=== PATIENT | male | born 1955 | race Caucasian/White ===

== ENCOUNTER 2020-03-18 04:44 | Inpatient (IN) ==
--- NOTE | 2020-03-18 04:50 | Emergency Department Note ---
Impression & Plan Acute hyponatremia, Paranoia (psychosis), Acute alteration in mental status ED Provider Note NAME: LISANDRA LANDRY AGE: 64 SEX: M ARRIVES VIA: Ambulance INFORMANT: Patient state police ED PROVIDER(S): Renuka Johnson DO CHIEF COMPLAINT: Inability to care for self; delusional thoughts PLAN: Disposition: Admission to the hospital for hyponatremia under [facility] service MEDICAL DECISION MAKING: This is a 64-year-old male patient who presents to the emergency department with erratic behavior and altered mental status. The patient became increasingly delusional, paranoid and unable to care for himself approximately 1 week ago according to his daughter. She is scared for his safety and has petitioned a 302. During his medical evaluation and clearance, it was found that he was hyponatremic. The patient required chemical sedation to keep the staff safe and to keep him safe as he was threatening staff, tearing off monitoring devices, and jumping up to a standing position on the bed. I tried on multiple occasions to redirect the patient and get him to focus on me to answer questions but this was unsuccessful. The patient's vital signs remained stable except for intermittent tachycardia. CT scan of the brain was unremarkable. We administered IV normal saline solution as the patient was hyponatremic. I discussed the case with Dr. Barnes who will evaluate the patient for further medical care and consult psychiatry. Triage Nursing notes reviewed and agree them. Additional history obtained from [place] [employer] and the patient's daughter Vital Signs: reviewed and remarkable for hypertension and tachycardia Differential diagnosis: Hypoglycemia, thought disorder, metabolic encephalopathy, electrolyte abnormal ity, hepatic encephalopathy, intracranial mass ER treatment provided: Chemical restraint IV normal saline replacement Diagnostics interpreted by me: ECG: Sinus tachycardia at 117. No ST segment elevation, no T wave inversion. No signs of cardiac ischemia or ectopy Imaging studies: As interpreted by stat rad: CT scan of the brain: Moderate chronic small vessel ischemic change. No ICH, mass-effect or edema. No evidence of acute cortical stroke. Mucosal thickening of bilateral maxillary sinuses. Laboratory studies: See below HPI: 64/M arrives for evaluation of delusional thoughts. The patient has a history of schizophrenia and has not been taking his medications. The patient's daughter petitioned a 302. The [employer] police picked the patient up on a warrant and brought him here for evaluation. The patient was combative upon arrival and covered in feces. He appeared paranoid and delusional at times. He had difficulty participating in meaningful conversation. He was difficult to redirect. ROS: See above HPI for pertinent positives & negatives. A total of 10 systems reviewed and were otherwise negative. PAST MEDICAL HISTORY: Schizophrenia and bipolar disorder PAST SURGICAL HISTORY:Unknown as the patient is unable to answer this FAMILY HISTORY:Unknown as the patient is unable to answer this SOCIAL HISTORY: The patient denies drug and alcohol use and states that he lives in a trailer HOME MEDICATIONS:Unknown as the patient denies that he takes any ALLERGIES:Unknown-the patient denies that he has any allergies VITALS:As below PHYSICAL EXAMINATION: This is a disheveled appearing 64-year-old male patient who is covered in dirt and feces. HEENT: Head - normocephalic and atraumatic Pupils are equal, round, and reactive to light. Extraocular eye muscles are intact, and sclera are anicteric. Nose - moist nasal mucosa without discharge. Mouth - moist buccal mucosa. Oropharynx is nonerythematous and there is no tonsillar exudate or edema noted. Neck: Supple; no JVD, nuchal rigidity, cervical lymphadenopathy, or auscultated bruits. Heart: Tachycardic rate and rhythm. There is a normal S1 and S2 with no murmurs, clicks, or gallops appreciated. Lungs: Clear to auscultation bilaterally with no wheezes, rales, or rhonchi. Abdomen: Soft, completely nontender, nondistended, with good bowel sounds. There are no palpable pulsatile masses or hepatosplenomegaly. There is no guarding, rigidity, or rebound noted. Extremities: No evidence of cyanosis, clubbing, or edema. There are easily palpable peripheral pulses. Skin: Extremely dirty with no obvious rashes Psych: The patient is extremely delusional and paranoid. He becomes quite hostile and belligerent at times. ED COURSE: Times/Reassessments: 0505: The patient is currently in the shower as he was covered in feces. He is screaming expletives from the shower. He is throwing stool covered towels from the shower. 0512: Nursing staff have alerted me that the patient is unable to cooperate with getting out of the shower into a bed for evaluation. He is throwing stool covered wash rags at them and security is assisting him into a bed and he will require sedation 0515: I went to the bedside and found the patient standing on the bed in the room with security and nursing staff in the room encouraging him to lay down. He allowed nursing staff to apply the blood pressure cuff but then immediately ripped it off and threatened to rip the blood pressure cord out of the blood pressure machine. He then began to scream expletives at the staff. I attempted on multiple occasions to engage in conversation with the patient to discuss his past medical history or medications but he ignored me. Once nursing staff arrived in the room with injectable medications, security was able to hold the patient by his extremities and the patient cooperated to have intramuscular injections placed in both buttocks. The patient continues to tell us that he insists that Oleksandr Abraham be in handcuffs. He denies any past medical history or that he is taking any medications. 0545: The patient was much more relaxed and able to go for CT scan of the brain. 0625: The patient is sleeping at this time. The public health program manager spoke with the patient's daughter who explained that her father has not seen a physician in approximately 20 years. She noted that she became concerned about her father 1 week ago when he seemed to be having more delusional thoughts. He was paranoid living in his trailer and therefore he moved out of the trailer to live in his car. She denies any history of medical problems except for the bipolar disorder with schizophrenic characteristics. Procedures: Chemical restraint for staff and patient safety Critical Care: I have personally spent greater than 75 minutes of critical care time in the direct management of this patient most specifically for chemical restraint. This includes bedside care, interpretation of diagnostic studies, and testing, discussion with, patient, and family members, and other required patient management activities. This 75 minutes is in excess of all separately billable procedures. Renuka Johnson, DO Past Med/Surg History Social History Feels Safe at Home: Yes Smoking Status: Unknown if ever smoked Results & Data (ED) Vital Signs Vital Signs - 24 hr 03/18/20 05:00 03/18/20 06:13 03/18/20 06:50 Temperature 36.8 C Temperature Source Oral Pulse Rate 121 H Pulse Rate [Right Finger] 98 H 114 H Pulse Rhythm Regular Pulse Rhythm [Right Finger] Regular Pulse Strength Normal Pulse Strength [Right Finger] Normal Respiratory Rate 22 20 Respiratory Effort / Characteristics Non-Labored Spontaneous Non-Labored Spontaneous Respiratory Depth Normal Normal Respiratory Pattern Regular Regular Blood Pressure 135/101 H Blood Pressure [Right Arm] 115/80 Blood Pressure Mean 112 Blood Pressure Mean [Right Arm] 91 Blood Pressure Position Lying Blood Pressure Position [Right Arm] Lying Pulse Oximetry 95 91 90 Oxygen Delivery Method Room Air Room Air Room Air Oxygen Flow Rate Sepsis Recent Fever Within 48 Hours No Sepsis New/Unexplained Change in Mental Status No Sepsis Action Taken by Nursing No Action Required 03/18/20 07:08 Temperature Temperature Source Pulse Rate Pulse Rate [Right Finger] 109 H Pulse Rhythm Pulse Rhythm [Right Finger] Pulse Strength Pulse Strength [Right Finger] Respiratory Rate 26 H Respiratory Effort / Characteristics Respiratory Depth Respiratory Pattern Blood Pressure Blood Pressure [Right Arm] 98/79 L Blood Pressure Mean Blood Pressure Mean [Right Arm] 85 Blood Pressure Position Blood Pressure Position [Right Arm] Pulse Oximetry 93 Oxygen Delivery Method Nasal Cannula Oxygen Flow Rate 2 Sepsis Recent Fever Within 48 Hours Sepsis New/Unexplained Change in Mental Status Sepsis Action Taken by Nursing Laboratory Data Result diagrams: 03/18/20 05:26 03/18/20 05:26 Lab Results 03/18/20 03/18/20 03/18/20 Range/Units 05:26 05:26 05:26 WBC 14.67 H (4.8-10.8) K/uL RBC 4.58 L (4.7-6.1) M/uL Hgb 13.7 L (14.0-18.0) g/dL Hct 40.5 L (42-52) % MCV 88.4 (80-100) fL MCH 29.9 (25-34) pg MCHC 33.8 (32-36) g/dL RDW Std Deviation 44.0 (36.4-46.3) fL RDW Coeff of Kurt 13.6 (11.5-14.5) % Plt Count 418 H (130-400) K/uL MPV 9.2 (7.4-10.4) fL Immature Gran % (Auto) 0.4 % Neut % (Auto) 79.7 % Lymph % (Auto) 8.7 % [place] % (Auto) 11.0 % Eos % (Auto) 0.1 % Baso % (Auto) 0.1 % Immature Gran # (Auto) 0.06 H (0.00-0.02) K/uL Neut # (Auto) 11.68 H (1.4-6.5) K/uL Lymph # (Auto) 1.28 (1.2-3.4) K/uL [place] # (Auto) 1.62 H (0.11-0.59) K/uL Eos # (Auto) 0.01 (0-0.5) K/uL Baso # (Auto) 0.02 (0-0.2) K/uL Sodium 129 L (136-145) mmol/L Potassium 4.5 (3.5-5.1) mmol/L Chloride 94 L (98-107) mmol/L Carbon Dioxide 27 (21-32) mmol/L Anion Gap 8.0 (3-11) BUN 15 (7-18) mg/dl Creatinine 0.79 (0.6-1.4) mg/dl Est Cr Clr Drug Dosing 89.0 ml/min Est GFR ( Amer) 109.2 Est GFR (Non-Af Amer) 94.2 BUN/Creatinine Ratio 18.6 (10-20) Glucose 135 H (70-99) mg/dl Calcium 9.5 (8.5-10.1) mg/dl Total Bilirubin 0.5 (0.2-1) mg/dl AST 23 (15-37) U/L ALT 23 (12-78) U/L Alkaline Phosphatase 87 (45-117) U/L Ammonia (11-32) umol/L Total Protein 7.7 (6.4-8.2) gm/dl Albumin 3.2 L (3.4-5.0) gm/dl Globulin 4.5 H (2.5-4.0) gm/dl Albumin/Globulin Ratio 0.7 L (0.9-2) TSH 0.650 (0.300-4.500) uIu/ml Salicylates < 1.7 L (2.8-20) mg/dl Acetaminophen < 2 L (10-30) ug/ml Ethyl Alcohol mg/dL (0-3) mg/dl 03/18/20 03/18/20 Range/Units 05:26 05:26 WBC (4.8-10.8) K/uL RBC (4.7-6.1) M/uL Hgb (14.0-18.0) g/dL Hct (42-52) % MCV (80-100) fL MCH (25-34) pg MCHC (32-36) g/dL RDW Std Deviation (36.4-46.3) fL RDW Coeff of Kurt (11.5-14.5) % Plt Count (130-400) K/uL MPV (7.4-10.4) fL Immature Gran % (Auto) % Neut % (Auto) % Lymph % (Auto) % [place] % (Auto) % Eos % (Auto) % Baso % (Auto) % Immature Gran # (Auto) (0.00-0.02) K/uL Neut # (Auto) (1.4-6.5) K/uL Lymph # (Auto) (1.2-3.4) K/uL [place] # (Auto) (0.11-0.59) K/uL Eos # (Auto) (0-0.5) K/uL Baso # (Auto) (0-0.2) K/uL Sodium (136-145) mmol/L Potassium (3.5-5.1) mmol/L Chloride (98-107) mmol/L Carbon Dioxide (21-32) mmol/L Anion Gap (3-11) BUN (7-18) mg/dl Creatinine (0.6-1.4) mg/dl Est Cr Clr Drug Dosing ml/min Est GFR ( Amer) Est GFR (Non-Af Amer) BUN/Creatinine Ratio (10-20) Glucose (70-99) mg/dl Calcium (8.5-10.1) mg/dl Total Bilirubin (0.2-1) mg/dl AST (15-37) U/L ALT (12-78) U/L Alkaline Phosphatase (45-117) U/L Ammonia < 10.0 L (11-32) umol/L Total Protein (6.4-8.2) gm/dl Albumin (3.4-5.0) gm/dl Globulin (2.5-4.0) gm/dl Albumin/Globulin Ratio (0.9-2) TSH (0.300-4.500) uIu/ml Salicylates (2.8-20) mg/dl Acetaminophen (10-30) ug/ml Ethyl Alcohol mg/dL < 3.0 (0-3) mg/dl Administered Medications Discontinued Medications Haloperidol Lactate (Haldol) Confirm Administered Dose 5 mg .ROUTE .STK-MED ONE Stop: 03/18/20 05:15 Last Admin: 03/18/20 05:20 Dose: 5 mg Documented by: [id number] Haloperidol Lactate (Haldol) 5 mg IM NOW STA Stop: 03/18/20 05:30 Last Admin: 03/18/20 05:48 Dose: Not Given Documented by: [id number] Sodium Chloride (Nss 1000ml) 1,000 mls @ 999 mls/hr IV .Q1H1M ONE Stop: 03/18/20 07:21 Last Admin: 03/18/20 06:48 Dose: 999 mls/hr Documented by: [id number] Lorazepam (Ativan) Confirm Administered Dose 2 mg .ROUTE .STK-MED ONE Stop: 03/18/20 05:15 Last Admin: 03/18/20 05:20 Dose: 2 mg Documented by: [id number] Lorazepam (Ativan) 2 mg IM NOW STA Stop: 03/18/20 05:30 Last Admin: 03/18/20 05:47 Dose: Not Given Documented by: [id number] Discharge Plan Visit Data Chief Complaint: Altered Mental Status Stated Complaint: ALTERED MENTAL STATUS ED Provider: Renuka Johnson Discharge Problem: Acute hyponatremia, Paranoia (psychosis), Acute alteration in mental status Forms Stand Alone Forms: [facility]
[2020-03-18] MEDS ORDERED: LORazepam 2 MG/ML VIAL (IM USE) ONE (05:14)
[2020-03-18] MEDS ORDERED: HALOPERIDOL LACTATE 5 MG/ML 1 ML VIAL ONE (05:14)
[2020-03-18] MEDS ORDERED: LORazepam 2 MG/ML VIAL (IM USE) IM STA (05:29)
[2020-03-18] MEDS ORDERED: HALOPERIDOL LACTATE 5 MG/ML 1 ML VIAL IM STA (05:29)
[2020-03-18 06:02] LABS: Basophils # (auto) 0.02 K/uL (0-0.2); Basophils % (auto) 0.1 %; Eosinophils # (auto) 0.01 K/uL (0-0.5); Eosinophils % (auto) 0.1 %; Hematocrit (blood only) 40.5 % (42-52); Hemoglobin 13.7 g/dL (14.0-18.0); Immature Granulocytes # (auto) 0.06 K/uL (0.00-0.02); Immature Granulocytes % (auto) 0.4 %; Lymphocytes # (auto) 1.28 K/uL (1.2-3.4); Lymphocytes % (auto) 8.7 %; Mean Corpuscular Hemoglobin 29.9 pg (25-34); Mean Corpuscular Hgb Conc 33.8 g/dL (32-36); Mean Corpuscular Volume 88.4 fL (80-100); Mean Platelet Volume 9.2 fL (7.4-10.4); Monocytes # (auto) 1.62 K/uL (0.11-0.59); Neutrophils # (auto) 11.68 K/uL (1.4-6.5); Neutrophils % (auto) 79.7 %; Platelet Count 418 K/uL (130-400); RDW Coefficient of Variation 13.6 % (11.5-14.5); Red Blood Count 4.58 M/uL (4.7-6.1); White Blood Count 14.67 K/uL (4.8-10.8)
[2020-03-18 06:08] LABS: Albumin Level 3.2 gm/dl (3.4-5.0); BUN Creatinine Ratio 18.6 (10-20); Calcium 9.5 mg/dl (8.5-10.1); Est GFR (African American) 109.2; Est GFR (Non-African American) 94.2; Potassium 4.5 mmol/L (3.5-5.1)
[2020-03-18 06:19] LABS: Albumin Globulin Ratio 0.7 (0.9-2); Bilirubin,Total 0.5 mg/dl (0.2-1); Globulin 4.5 gm/dl (2.5-4.0); Thyroid Stimulating Hormone 0.65 uIu/ml (0.300-4.500); Total Protein 7.7 gm/dl (6.4-8.2)
[2020-03-18] MEDS ORDERED: SODIUM CHLORIDE 0.9% 1000ML 1,000 ML IV ONE (06:21)
[2020-03-18 06:22] LABS: Acetaminophen < 2 ug/ml (10-30); Salicylate < 1.7 mg/dl (2.8-20)
--- NOTE | 2020-03-18 07:44 | CT Scan Report ---
CT head/brain wo con CLINICAL HISTORY: 64 years-old Male presenting with altered mental status, schizophrenia, bipolar, of f medication. TECHNIQUE: Multidetector CT imaging of the head was performed without the use of intravenous contrast . IV contrast: None. One or more dose lowering techniques were used consistent with the principles of ALARA (as low as reasonably achievable), including automatic exposure control, mA or kV adjustment t o individual patient size, and/or use of iterative reconstruction. COMPARISON: None. CT DOSE (mGy.cm): The estimated cumulative dose is 921.40 mGy.cm. FINDINGS: Contact Center Assistant topogram: Unremarkable. Motion artifact degrades image quality limiting diagnostic sensitivity to a mild degree. Ventricles and sulci normal in size. No hemorrhage. Brain parenchyma normal in appearance with preser marybeth martinez-white differentiation. No acute territorial infarct. No mass effect or midline shift. No ext ra-axial fluid collection. Mucosal thickening in the maxillary sinuses. Calvarium intact. IMPRESSION: Motion artifact degrades image quality limiting diagnostic sensitivity to a mild degree. 1. No acute intracranial abnormality. ACT 112: Negative or not required by law. Electronically signed by: Yoni Hull M.D. 03/18/2020 7:42 AM
--- NOTE | 2020-03-18 08:56 | History & Physical Report ---
Date of Service March 18, 2020 Assessment & Plan (1) Acute hyponatremia: With paranoia, delusions, possible metabolic encephalopathy, and dehydration with Na+ 129 and ketones in urine Secondary to dehydration, pneumonia, sepsis most likely -continue IVFs with NS x 2L -follow BMP in AM -treating PNA, dehydration (2) Paranoia (psychosis): With a h/o bipolar with schizotypal disorder TSH here is normal -haldol po and IM ordered for severe agitation -ativan as needed -check B1, folate, B12 levels -give banana bag and watch for EtOH withdrawal as not sure how much he truly drinks Psych consult appreciated (3) Pneumonia: Left sided multifocal PNA seen on CXR With fevers, hypotension, no significant hypoxia -check BCs, sputum cx -start ceftriaxone and azithro -check BioFire--> + for Entero/Rhinovirus -COVID-19 pending-use airborne and droplet precautions -follow CXR to resolution -supplemental O2 as needed (4) Sepsis: With leukocytosis, fever, tachycardia, and Pneumonia -continue IV abx, IVFs -follow BCxs, urine cx, sputum cx (5) Dehydration: with hyponatremia, ketones in urine Likely not drinking much while paranoid -adv diet as tolerated -giving IVFs (6) Schizoaffective disorder, bipolar type: with a h/o 2 remote hospitalizations at inpatient Psych -consult Psych-discussed case with Psych [facility] (7) Acute metabolic encephalopathy: secondary to psychosis vs PNA and sepsis vs both -hydrating, treating with abx (8) Marijuana abuse: noted (9) Tobacco abuse: nicotine patch if needed (10) DVT prophylaxis: SCDs Dispo-admit to med floor with tele Polysomnography Technician consulted History of Present Illness Chief Complaint: Confusion,brought in by police on 302 Primary Care Provider: NO PCP This pt is a 64 yo male with a h/o bipolar disorder with psychosis who was brought in by [employer] after he left home about one week ago and was driving hours away from his house. 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 Pt became increasingly paranoid that his son was going to call the police and have him committed to a hospital for psych issues. He then left and was maintaining contact with his daughter via phone until he ran out of cell phone minutes. He befriended another couple in the [place] area who lent him a cell phone to call his daughter. The daughter found out his approximate whereabouts. After pt reported to his daughter that he thought someone was trying to kill him and push his car over a herbert with him inside, she became worried about his mental health and called the police. Daughter also reports to me that pt has not seen a doctor in over 20 years and that was for an inpatient psychiatric hospitalization. She also thinks that he may be abusing "horse tranquilizers." [facility], covered in feces, and his car was filled with feces and trash. He was agitated and combative in the ER and was given ativan and haldol, required multiple security guards to control him for safety. He was very lethargic when I saw him for admission, but did wake up enough a few times to tell me his name was "Ludwin" and answered "yes" to if he smoked cigarettes as well as "too much" when asked how many cigarettes per day he smoked. Otherwise, he would not provide any history. He was noted to be coughing, tachycardic, hypotensive, dehydrated, with ketones in urine, marijuana on tox screen, and with hyponatremia of Na+ 129. CT head was negative. A few hours after admission to the floor, he spiked a fever to 38.1C and was found to have a left sided multifocal PNA. He will be admitted for hyponatremia, dehydration, paranoia and confusion, and pneumonia with sepsis. Home Medications Home Medications Medication Instructions Recorded Confirmed Type aspirin 81 mg PO DAILY 03/18/20 03/18/20 History Past Med/Surg History Medical History (Updated 03/19/20 @ 00:14 by Lisa Barnes MD) Arthritis Schizoaffective disorder, bipolar type Tobacco abuse Family History Other Family history non-contributory Social History Preferred Language: Tristanian Larr[place] Required: No marital status: / Current Living Situation: Alone Current Living Situation Comment: Pt did not answer in depth current occupational status: disabled current occupation: Was a [employer], now disabled Feels Safe at Home: Declines to Answer Smoking Status: Current every day smoker Tobacco Type: cigarettes ; Hx Alcohol Use: Yes Alcohol type: beer Hx Substance Use: Yes substance use type: tranquilizers Substance Use Type Other:: reported possible horse tranquilizers from family Last Used Substance: Unknown Review of Systems Review of Systems: Unobtainable due to cognitive status and Unobtainable due to reduced consciousness daughter reports pt c/o right hand being weak for the last few weeks and he thought he had a stroke and began taking a baby aspirin daily +cough Physical Exam Constitutional: average body habitus, + disheveled and + lethargic; no acute distress Eyes: + anicteric sclerae; no eyelid abnormality exophthalmos OU ENMT: external ear and nose normal, oropharynx normal Neck: trachea midline, no thyromegaly Respiratory: normal respiratory effort and + cough; no labored breathing Auscultation: + rhonchi (bilateral); no wheezes Cardiovascular: Rate/Rhythm: regular rhythm and + tachycardic Heart Sounds: no murmur Chest (Breasts): Chest: normal inspection of chest Gastrointestinal (Abdomen): normal bowel sounds, soft, nontender, no hepatosplenomegaly Musculoskeletal: Extremities: + extremities abnormal to inspection (sarcopenia), no cyanosis and no clubbing Skin: no rashes, warm and dry Neurologic: moves all extremities Psychiatric: Orientation: oriented to person, cooperative and + guarded; + not oriented to place and + not oriented to time Eye Contact: + poor eye contact Motor Behavior: n tremor Insight: + severely impaired insight Lymphatic: no lymphedema Results & Data Results & Data ([facility]) Vital Signs (Past 12 Hours) Vital Signs Temp Pulse Pulse Resp BP BP Pulse Ox 03/18/20 07:08 109 H 26 H 98/79 L 93 03/18/20 06:50 114 H 20 115/80 90 03/18/20 06:13 98 H 91 03/18/20 05:00 36.8 C 121 H 22 135/101 H 95 Laboratory Results 03/18/20 03/18/20 03/18/20 Range/Units Unknown Unknown Unknown WBC (4.8-10.8) K/uL RBC (4.7-6.1) M/uL Hgb (14.0-18.0) g/dL Hct (42-52) % MCV (80-100) fL MCH (25-34) pg MCHC (32-36) g/dL RDW Std Deviation (36.4-46.3) fL RDW Coeff of Kurt (11.5-14.5) % Plt Count (130-400) K/uL MPV (7.4-10.4) fL Immature Gran % (Auto) % Neut % (Auto) % Lymph % (Auto) % [place] % (Auto) % Eos % (Auto) % Baso % (Auto) % Immature Gran # (Auto) (0.00-0.02) K/uL Neut # (Auto) (1.4-6.5) K/uL Lymph # (Auto) (1.2-3.4) K/uL [place] # (Auto) (0.11-0.59) K/uL Eos # (Auto) (0-0.5) K/uL Baso # (Auto) (0-0.2) K/uL Sodium (136-145) mmol/L Potassium (3.5-5.1) mmol/L Chloride (98-107) mmol/L Carbon Dioxide (21-32) mmol/L Anion Gap (3-11) BUN (7-18) mg/dl Creatinine (0.6-1.4) mg/dl Est Cr Clr Drug Dosing ml/min Est GFR ( Amer) Est GFR (Non-Af Amer) BUN/Creatinine Ratio (10-20) Glucose (70-99) mg/dl Calcium (8.5-10.1) mg/dl Total Bilirubin (0.2-1) mg/dl AST (15-37) U/L ALT (12-78) U/L Alkaline Phosphatase (45-117) U/L Ammonia (11-32) umol/L Total Protein (6.4-8.2) gm/dl Albumin (3.4-5.0) gm/dl Globulin (2.5-4.0) gm/dl Albumin/Globulin Ratio (0.9-2) TSH (0.300-4.500) uIu/ml Urine Color Yellow Urine Appearance Clear (Clear) Urine pH 6.0 (4.5-7.5) Ur Specific [place] 1.011 (1.000-1.030) Urine Protein Negative (Negative) Urine Glucose (UA) Negative (Negative) Urine Ketones 1+ H (Negative) Urine Blood Negative (Negative) Urine Nitrite Negative (Negative) Urine Bilirubin Negative (Negative) Urine Urobilinogen Negative (Negative) Ur Leukocyte Esterase Negative (Negative) Salicylates (2.8-20) mg/dl Urine Opiates Screen Neg (Neg) Ur Methadone, Qual Neg (Neg) Acetaminophen (10-30) ug/ml Urine Barbiturates Neg (Neg) Ur Phencyclidine (PCP) Neg (Neg) U Amphetamin/Meth Scrn Neg (Neg) MDMA (Ecstasy) Screen Neg (Neg) U Benzodiazepines Scrn Neg (Neg) Ur Cocaine Metabolite Neg (Neg) U Marijuana (THC) Screen Pos H (Neg) U Marijuana THC Carboxy Pending Drug Screen Comment Pending Ethyl Alcohol mg/dL (0-3) mg/dl Adenovirus (PCR) (NotDetected) B. pertussis DNA (PCR) (NotDetected) B.parapertussis DNA PCR (NotDetected) C. pneumoniae DNA (PCR) (NotDetected) Coronavirus OC43 (PCR) (NotDetected) Coronavirus HKU1 (PCR) (NotDetected) Coronavirus 229E (PCR) (NotDetected) Coronavirus NL63 (PCR) (NotDetected) Human Metapneumovir PCR (NotDetected) Influenza Type A (PCR) (Neg) Influenza Type B (PCR) (Neg) M. pneumoniae (PCR) (NotDetected) Parainfluenza 1 (PCR) (NotDetected) Parainfluenza 2 (PCR) (NotDetected) Parainfluenza 3 (PCR) (NotDetected) Parainfluenza 4 (PCR) (NotDetected) RSV (PCR) (NotDetected) Entero/Rhino (PCR) (NotDetected) SARS-CoV-2 RNA (RT-PCR) 03/18/20 03/18/20 03/18/20 Range/Units 17:00 17:00 16:05 WBC (4.8-10.8) K/uL RBC (4.7-6.1) M/uL Hgb (14.0-18.0) g/dL Hct (42-52) % MCV (80-100) fL MCH (25-34) pg MCHC (32-36) g/dL RDW Std Deviation (36.4-46.3) fL RDW Coeff of Kurt (11.5-14.5) % Plt Count (130-400) K/uL MPV (7.4-10.4) fL Immature Gran % (Auto) % Neut % (Auto) % Lymph % (Auto) % [place] % (Auto) % Eos % (Auto) % Baso % (Auto) % Immature Gran # (Auto) (0.00-0.02) K/uL Neut # (Auto) (1.4-6.5) K/uL Lymph # (Auto) (1.2-3.4) K/uL [place] # (Auto) (0.11-0.59) K/uL Eos # (Auto) (0-0.5) K/uL Baso # (Auto) (0-0.2) K/uL Sodium (136-145) mmol/L Potassium (3.5-5.1) mmol/L Chloride (98-107) mmol/L Carbon Dioxide (21-32) mmol/L Anion Gap (3-11) BUN (7-18) mg/dl Creatinine (0.6-1.4) mg/dl Est Cr Clr Drug Dosing ml/min Est GFR ( Amer) Est GFR (Non-Af Amer) BUN/Creatinine Ratio (10-20) Glucose (70-99) mg/dl Calcium (8.5-10.1) mg/dl Total Bilirubin (0.2-1) mg/dl AST (15-37) U/L ALT (12-78) U/L Alkaline Phosphatase (45-117) U/L Ammonia (11-32) umol/L Total Protein (6.4-8.2) gm/dl Albumin (3.4-5.0) gm/dl Globulin (2.5-4.0) gm/dl Albumin/Globulin Ratio (0.9-2) TSH (0.300-4.500) uIu/ml Urine Color Urine Appearance (Clear) Urine pH (4.5-7.5) Ur Specific [place] (1.000-1.030) Urine Protein (Negative) Urine Glucose (UA) (Negative) Urine Ketones (Negative) Urine Blood (Negative) Urine Nitrite (Negative) Urine Bilirubin (Negative) Urine Urobilinogen (Negative) Ur Leukocyte Esterase (Negative) Salicylates (2.8-20) mg/dl Urine Opiates Screen (Neg) Ur Methadone, Qual (Neg) Acetaminophen (10-30) ug/ml Urine Barbiturates (Neg) Ur Phencyclidine (PCP) (Neg) U Amphetamin/Meth Scrn (Neg) MDMA (Ecstasy) Screen (Neg) U Benzodiazepines Scrn (Neg) Ur Cocaine Metabolite (Neg) U Marijuana (THC) Screen (Neg) U Marijuana THC Carboxy Drug Screen Comment Ethyl Alcohol mg/dL (0-3) mg/dl Adenovirus (PCR) Not Detected (NotDetected) B. pertussis DNA (PCR) Not Detected (NotDetected) B.parapertussis DNA PCR Not Detected (NotDetected) C. pneumoniae DNA (PCR) Not Detected (NotDetected) Coronavirus OC43 (PCR) Not Detected (NotDetected) Coronavirus HKU1 (PCR) Not Detected (NotDetected) Coronavirus 229E (PCR) Not Detected (NotDetected) Coronavirus NL63 (PCR) Not Detected (NotDetected) Human Metapneumovir PCR Not Detected (NotDetected) Influenza Type A (PCR) Not Detected Neg for Influ A (Neg) Influenza Type B (PCR) Not Detected Neg for Influ B (Neg) M. pneumoniae (PCR) Not Detected (NotDetected) Parainfluenza 1 (PCR) Not Detected (NotDetected) Parainfluenza 2 (PCR) Not Detected (NotDetected) Parainfluenza 3 (PCR) Not Detected (NotDetected) Parainfluenza 4 (PCR) Not Detected (NotDetected) RSV (PCR) Not Detected (NotDetected) Entero/Rhino (PCR) DETECTED A* (NotDetected) SARS-CoV-2 RNA (RT-PCR) Pending 03/18/20 03/18/20 03/18/20 Range/Units 05:26 05:26 05:26 WBC (4.8-10.8) K/uL RBC (4.7-6.1) M/uL Hgb (14.0-18.0) g/dL Hct (42-52) % MCV (80-100) fL MCH (25-34) pg MCHC (32-36) g/dL RDW Std Deviation (36.4-46.3) fL RDW Coeff of Kurt (11.5-14.5) % Plt Count (130-400) K/uL MPV (7.4-10.4) fL Immature Gran % (Auto) % Neut % (Auto) % Lymph % (Auto) % [place] % (Auto) % Eos % (Auto) % Baso % (Auto) % Immature Gran # (Auto) (0.00-0.02) K/uL Neut # (Auto) (1.4-6.5) K/uL Lymph # (Auto) (1.2-3.4) K/uL [place] # (Auto) (0.11-0.59) K/uL Eos # (Auto) (0-0.5) K/uL Baso # (Auto) (0-0.2) K/uL Sodium (136-145) mmol/L Potassium (3.5-5.1) mmol/L Chloride (98-107) mmol/L Carbon Dioxide (21-32) mmol/L Anion Gap (3-11) BUN (7-18) mg/dl Creatinine (0.6-1.4) mg/dl Est Cr Clr Drug Dosing ml/min Est GFR ( Amer) Est GFR (Non-Af Amer) BUN/Creatinine Ratio (10-20) Glucose (70-99) mg/dl Calcium (8.5-10.1) mg/dl Total Bilirubin (0.2-1) mg/dl AST (15-37) U/L ALT (12-78) U/L Alkaline Phosphatase (45-117) U/L Ammonia < 10.0 L (11-32) umol/L Total Protein (6.4-8.2) gm/dl Albumin (3.4-5.0) gm/dl Globulin (2.5-4.0) gm/dl Albumin/Globulin Ratio (0.9-2) TSH (0.300-4.500) uIu/ml Urine Color Urine Appearance (Clear) Urine pH (4.5-7.5) Ur Specific [place] (1.000-1.030) Urine Protein (Negative) Urine Glucose (UA) (Negative) Urine Ketones (Negative) Urine Blood (Negative) Urine Nitrite (Negative) Urine Bilirubin (Negative) Urine Urobilinogen (Negative) Ur Leukocyte Esterase (Negative) Salicylates < 1.7 L (2.8-20) mg/dl Urine Opiates Screen (Neg) Ur Methadone, Qual (Neg) Acetaminophen < 2 L (10-30) ug/ml Urine Barbiturates (Neg) Ur Phencyclidine (PCP) (Neg) U Amphetamin/Meth Scrn (Neg) MDMA (Ecstasy) Screen (Neg) U Benzodiazepines Scrn (Neg) Ur Cocaine Metabolite (Neg) U Marijuana (THC) Screen (Neg) U Marijuana THC Carboxy Drug Screen Comment Ethyl Alcohol mg/dL < 3.0 (0-3) mg/dl Adenovirus (PCR) (NotDetected) B. pertussis DNA (PCR) (NotDetected) B.parapertussis DNA PCR (NotDetected) C. pneumoniae DNA (PCR) (NotDetected) Coronavirus OC43 (PCR) (NotDetected) Coronavirus HKU1 (PCR) (NotDetected) Coronavirus 229E (PCR) (NotDetected) Coronavirus NL63 (PCR) (NotDetected) Human Metapneumovir PCR (NotDetected) Influenza Type A (PCR) (Neg) Influenza Type B (PCR) (Neg) M. pneumoniae (PCR) (NotDetected) Parainfluenza 1 (PCR) (NotDetected) Parainfluenza 2 (PCR) (NotDetected) Parainfluenza 3 (PCR) (NotDetected) Parainfluenza 4 (PCR) (NotDetected) RSV (PCR) (NotDetected) Entero/Rhino (PCR) (NotDetected) SARS-CoV-2 RNA (RT-PCR) 03/18/20 03/18/20 Range/Units 05:26 05:26 WBC 14.67 H (4.8-10.8) K/uL RBC 4.58 L (4.7-6.1) M/uL Hgb 13.7 L (14.0-18.0) g/dL Hct 40.5 L (42-52) % MCV 88.4 (80-100) fL MCH 29.9 (25-34) pg MCHC 33.8 (32-36) g/dL RDW Std Deviation 44.0 (36.4-46.3) fL RDW Coeff of Kurt 13.6 (11.5-14.5) % Plt Count 418 H (130-400) K/uL MPV 9.2 (7.4-10.4) fL Immature Gran % (Auto) 0.4 % Neut % (Auto) 79.7 % Lymph % (Auto) 8.7 % [place] % (Auto) 11.0 % Eos % (Auto) 0.1 % Baso % (Auto) 0.1 % Immature Gran # (Auto) 0.06 H (0.00-0.02) K/uL Neut # (Auto) 11.68 H (1.4-6.5) K/uL Lymph # (Auto) 1.28 (1.2-3.4) K/uL [place] # (Auto) 1.62 H (0.11-0.59) K/uL Eos # (Auto) 0.01 (0-0.5) K/uL Baso # (Auto) 0.02 (0-0.2) K/uL Sodium 129 L (136-145) mmol/L Potassium 4.5 (3.5-5.1) mmol/L Chloride 94 L (98-107) mmol/L Carbon Dioxide 27 (21-32) mmol/L Anion Gap 8.0 (3-11) BUN 15 (7-18) mg/dl Creatinine 0.79 (0.6-1.4) mg/dl Est Cr Clr Drug Dosing 89.0 ml/min Est GFR ( Amer) 109.2 Est GFR (Non-Af Amer) 94.2 BUN/Creatinine Ratio 18.6 (10-20) Glucose 135 H (70-99) mg/dl Calcium 9.5 (8.5-10.1) mg/dl Total Bilirubin 0.5 (0.2-1) mg/dl AST 23 (15-37) U/L ALT 23 (12-78) U/L Alkaline Phosphatase 87 (45-117) U/L Ammonia (11-32) umol/L Total Protein 7.7 (6.4-8.2) gm/dl Albumin 3.2 L (3.4-5.0) gm/dl Globulin 4.5 H (2.5-4.0) gm/dl Albumin/Globulin Ratio 0.7 L (0.9-2) TSH 0.650 (0.300-4.500) uIu/ml Urine Color Urine Appearance (Clear) Urine pH (4.5-7.5) Ur Specific [place] (1.000-1.030) Urine Protein (Negative) Urine Glucose (UA) (Negative) Urine Ketones (Negative) Urine Blood (Negative) Urine Nitrite (Negative) Urine Bilirubin (Negative) Urine Urobilinogen (Negative) Ur Leukocyte Esterase (Negative) Salicylates (2.8-20) mg/dl Urine Opiates Screen (Neg) Ur Methadone, Qual (Neg) Acetaminophen (10-30) ug/ml Urine Barbiturates (Neg) Ur Phencyclidine (PCP) (Neg) U Amphetamin/Meth Scrn (Neg) MDMA (Ecstasy) Screen (Neg) U Benzodiazepines Scrn (Neg) Ur Cocaine Metabolite (Neg) U Marijuana (THC) Screen (Neg) U Marijuana THC Carboxy Drug Screen Comment Ethyl Alcohol mg/dL (0-3) mg/dl Adenovirus (PCR) (NotDetected) B. pertussis DNA (PCR) (NotDetected) B.parapertussis DNA PCR (NotDetected) C. pneumoniae DNA (PCR) (NotDetected) Coronavirus OC43 (PCR) (NotDetected) Coronavirus HKU1 (PCR) (NotDetected) Coronavirus 229E (PCR) (NotDetected) Coronavirus NL63 (PCR) (NotDetected) Human Metapneumovir PCR (NotDetected) Influenza Type A (PCR) (Neg) Influenza Type B (PCR) (Neg) M. pneumoniae (PCR) (NotDetected) Parainfluenza 1 (PCR) (NotDetected) Parainfluenza 2 (PCR) (NotDetected) Parainfluenza 3 (PCR) (NotDetected) Parainfluenza 4 (PCR) (NotDetected) RSV (PCR) (NotDetected) Entero/Rhino (PCR) (NotDetected) SARS-CoV-2 RNA (RT-PCR) Diagnostic Findings CT head-neg for acute CXR personally reviewed and agree with the following report: SINGLE VIEW CHEST CLINICAL HISTORY: Cough and fever. FINDINGS: 2 AP, portable, upright chest radiographs are obtained. No prior studies are available for comparison at the time of dictation. The examination is degraded by portable technique and patient rotation. The heart is mildly enlarged noting atherosclerotic calcification of the thoracic aorta. Pulmonary vasculature is noncongested. There is patchy airspace consolidation at the left lung base and in the lingula. There is minimal atelectasis at the right lung base. No large pleural effusion or pneumothorax is seen. The skeletal structures appear osteopenic. The bony thorax is grossly intact. IMPRESSION: 1. There is airspace consolidation at the left lung base and lingula. Correlate clinically for evidence of pneumonia. Radiographic follow-up to resolution is recommended. 2. Cardiomegaly without radiographic evidence of congestive failure. ECG Rhythm: sinus tachycardia Additional Comments: no ischemic changes Code Status & VTE Plan Code Status FULL CODE VTE Prophylaxis Plan VTE Prophylaxis will be ordered: Yes PG Care Time/CCT Total # of Minutes Spent Total Time Spent with Patient: Total time spent is greater than 50% in coordination of care (as documented) at patient's floor/unit and/or counseling patient: Coding Level of Care Code 46689 Initial Inpt Care Lvl 3 Diagnoses Acute hyponatremia E87.1 Paranoia (psychosis) F22 Pneumonia J18.9 Sepsis A41.9 Dehydration E86.0 Schizoaffective disorder, bipolar type F25.0 Acute metabolic encephalopathy G93.41 Marijuana abuse F12.10 Tobacco abuse Z72.0 DVT prophylaxis Z29.9
[2020-03-18] MEDS: SODIUM CHLORIDE 0.9% 1000ML 1,000 ML IV SCH ×2 (09:09→16:46)
[2020-03-18] MEDS ORDERED: ONDANSETRON INJ 2 MG/ML 2 ML VIAL IV PRN (12:00)
[2020-03-18] MEDS ORDERED: POLYETHYLENE (MIRALAX) 17 GM PACK PO PRN (12:00)
[2020-03-18] MEDS ORDERED: HALOPERIDOL LACTATE 5 MG/ML 1 ML VIAL IM PRN (12:00)
[2020-03-18] MEDS ORDERED: ACETAMINOPHEN 325 MG TAB PO PRN (12:00)
[2020-03-18] MEDS ORDERED: LORazepam 1 MG/2 ML VIAL IV PRN (12:00)
[2020-03-18] MEDS ORDERED: MAGNESIUM HYDROXIDE SUSP 30 ML UDC PO PRN (12:00)
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
[2020-03-18 15:02] LABS: Appearance Urine Clear (Clear); Bilirubin Urine Negative (Negative); Blood Urine Negative (Negative); Color Urine Yellow; Glucose Urine UA Negative (Negative); Ketones Urine 1+ (Negative); Leukocyte Esterase Urine Negative (Negative); Nitrite Urine Negative (Negative); Protein Urine Negative (Negative); Specific Gravity Urine 1.011 (1.000-1.030); Urobilinogen Urine Negative (Negative)
--- NOTE | 2020-03-18 15:22 | Electrocardiogram Report ---
Test Reason : Blood Pressure : / mmHG Vent. Rate : 117 BPM Atrial Rate : 117 BPM P-R Int : 124 ms QRS Dur : 092 ms QT Int : 326 ms P-R-T Axes : 072 066 068 degrees QTc Int : 454 ms Sinus tachycardia Nonspecific ST abnormality Abnormal ECG No previous ECGs available Confirmed by Enrrique Esposito ([id number]) on 03/18/2020 3:22:32 PM Referred By: Confirmed By:Luca Esposito
[2020-03-18 15:32] LABS: Amphetamines+Metham, Urine Neg (Neg); Barbiturates, Urine Neg (Neg); Benzodiazepine, Urine Neg (Neg); Cocaine, Urine Neg (Neg); MDMA (Ecstacy), Urine Neg (Neg); Methadone, Urine Neg (Neg); Opiate, Urine Neg (Neg); Phencyclidine, Urine Neg (Neg)
--- NOTE | 2020-03-18 16:31 | XRay Report ---
SINGLE VIEW CHEST CLINICAL HISTORY: Cough and fever. FINDINGS: 2 AP, portable, upright chest radiographs are obtained. No prior studies are available for comparison at the time of dictation. The examination is degraded by portable technique and patient ro tation. The heart is mildly enlarged noting atherosclerotic calcification of the thoracic aorta. Pul monary vasculature is noncongested. There is patchy airspace consolidation at the left lung base and in the lingula. There is minimal atelectasis at the right lung base. No large pleural effusion or pne umothorax is seen. The skeletal structures appear osteopenic. The bony thorax is grossly intact. IMPRESSION: 1. There is airspace consolidation at the left lung base and lingula. Correlate clinically for eviden ce of pneumonia. Radiographic follow-up to resolution is recommended. 2. Cardiomegaly without radiographic evidence of congestive failure. ACT 112: Negative or not required by law. Electronically signed by: Brando Mckinney M.D. 03/18/2020 4:30 PM
[2020-03-18 16:49] LABS: Influenza A virus by PCR Neg for Influ A (Neg); Influenza B virus by PCR Neg for Influ B (Neg)
[2020-03-18] MEDS ORDERED: haloperidoL 5 MG TAB PO PRN (16:52)
[2020-03-18] MEDS ORDERED: AZITHROMYCIN 500 MG in DEXTROSE 5% 250 ML IV ONE (17:45)
[2020-03-18] MEDS: cefTRIAXone SODIUM 1,000 MG in DEXTROSE 5% 50 ML IV SCH (18:10)
[2020-03-18 18:21] LABS: Adenovirus PCR Not Detected (NotDetected); Coronavirus 229E PCR Not Detected (NotDetected); Coronavirus HKU1 PCR Not Detected (NotDetected); Coronavirus NL63 PCR Not Detected (NotDetected)
[2020-03-18 18:22] LABS: Bordetella parapertussis PCR Not Detected (NotDetected); Bordetella pertussis PCR Not Detected (NotDetected); Chlamydia pneumoniae PCR Not Detected (NotDetected); Coronavirus OC43PCR Not Detected (NotDetected); Human Metapneumovirus PCR Not Detected (NotDetected); Influenza A PCR Not Detected (NotDetected); Influenza B PCR Not Detected (NotDetected); Parainfluenza Virus 1 PCR Not Detected (NotDetected); Parainfluenza Virus 2 PCR Not Detected (NotDetected); Parainfluenza Virus 3 PCR Not Detected (NotDetected); Parainfluenza Virus 4 PCR Not Detected (NotDetected); Respiratory Syncytial VirusPCR Not Detected (NotDetected)
[2020-03-18 18:23] LABS: Mycoplasma pneumoniae PCR Not Detected (NotDetected)
[2020-03-18 18:25] LABS: Rhinovirus/Enterovirus PCR DETECTED (NotDetected)
[2020-03-18] MEDS ORDERED: COUGH DROP (SUGAR FREE) LOZ 24 LOZ/1 BOX BUCCAL PRN (22:17)
[2020-03-18] MEDS ORDERED: PATIENT'S ALLERGY INFO NEEDS ENTERED SCH (22:30)
[2020-03-18] MEDS ORDERED: MULTI-VITAMIN INFUSION 10 ML, THIAMINE HCL 100 MG, FOLIC ACID 1 MG in SODIUM CHLORIDE 0... IV ONE (23:59)
[2020-03-19 12:37] LABS: SARS CoV2 RNA(COVID-19) InHosp NEGATIVE (Negative)
[2020-03-19] MEDS ORDERED: risperiDONE ODT 0.5 MG SOLTAB PO PRN (12:39)
[2020-03-19] MEDS ORDERED: HALOPERIDOL LACTATE 5 MG/ML 1 ML VIAL IM PRN (12:42)
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
[2020-03-19 14:18] LABS: Basophils # (auto) 0.02 K/uL (0-0.2); Basophils % (auto) 0.1 %; Eosinophils # (auto) 0.05 K/uL (0-0.5); Eosinophils % (auto) 0.4 %; Immature Granulocytes # (auto) 0.06 K/uL (0.00-0.02); Immature Granulocytes % (auto) 0.4 %; Lymphocytes # (auto) 1.54 K/uL (1.2-3.4); Lymphocytes % (auto) 11.1 %; Mean Corpuscular Hemoglobin 30.2 pg (25-34); Mean Corpuscular Hgb Conc 33.3 g/dL (32-36); Mean Corpuscular Volume 90.5 fL (80-100); Monocytes # (auto) 0.84 K/uL (0.11-0.59); Monocytes % (auto) 6.1 %; Neutrophils # (auto) 11.32 K/uL (1.4-6.5); Neutrophils % (auto) 81.9 %; Platelet Count 418 K/uL (130-400); RDW Coefficient of Variation 13.8 % (11.5-14.5); Red Blood Count 3.98 M/uL (4.7-6.1); White Blood Count 13.83 K/uL (4.8-10.8)
[2020-03-19 14:34] LABS: Albumin Level 2.7 gm/dl (3.4-5.0); BUN Creatinine Ratio 18.9 (10-20); C Reactive Protein 16.5 mg/dl (0-0.29); Calcium 8.8 mg/dl (8.5-10.1); Creatinine Clr Calc Pharmacy 93.8 ml/min; Est GFR (African American) 111.6; Est GFR (Non-African American) 96.3
[2020-03-19 14:38] LABS: Albumin Globulin Ratio 0.7 (0.9-2); Bilirubin,Total 0.3 mg/dl (0.2-1); Globulin 4.1 gm/dl (2.5-4.0); Total Protein 6.8 gm/dl (6.4-8.2)
[2020-03-19 14:56] LABS: Folate (Folic Acid) 14.85 ng/ml (>5.38)
[2020-03-19 15:03] LABS: Procalcitonin 0.08 ng/ml (0-0.5)
[2020-03-19 15:14] LABS: Lyme Ab IgG w/WB Rflx Negative (Negative); Lyme Ab IgM w/WB Rflx Negative (Negative)
[2020-03-19] MEDS: ASPIRIN 81 MG ECTAB PO SCH (16:23)
[2020-03-19] MEDS: AZITHROMYCIN 250 MG TAB PO SCH (16:23)
[2020-03-19] MEDS ORDERED: AZITHROMYCIN 250 MG in DEXTROSE 5% 250 ML IV SCH (17:00)
[2020-03-19] MEDS: cefTRIAXone SODIUM 1,000 MG in DEXTROSE 5% 50 ML IV SCH (18:34)
[2020-03-19] MEDS ORDERED: risperiDONE ODT 0.5 MG SOLTAB PO SCH (20:00)
[2020-03-20] MEDS: ASPIRIN 81 MG ECTAB PO SCH (08:04)
[2020-03-20] MEDS: CEFDINIR 300 MG CAP PO SCH ×2 (09:16→21:08)
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
[2020-03-20] MEDS: AZITHROMYCIN 250 MG TAB PO SCH (17:03)
--- NOTE | 2020-03-20 17:32 | Hospitalist Progress Note ---
Date of Service March 20, 2020 Assessment & Plan (1) Acute hyponatremia: With paranoia, delusions, possible metabolic encephalopathy, and dehydration with Na+ 129 and ketones in urine on admission Secondary to dehydration, pneumonia, sepsis most likely Now hydrated with IVFs and Na+ up almost to normal at 135 Patient refused labs today -Have since discontinued IVFs -treating PNA as below (2) Paranoia (psychosis): Patient is here on a 302 warrant and remains with a one-to-one sitter- inability to take care of himself and for homicidal ideations With a h/o bipolar disorder, schizoaffective type see H&P HPI for background information TSH here is normal Was making homicidal statements, pressured speech, with psychomotor agitation, paranoid that his family members were trying to have him committed and that someone was trying to kill him on the side of the road Question of prior drug use. UDS + for marijuana, but also reports of "horse tranquilizer" use Does drink some EtOH but unknown amounts -gave Banana bag x 1 on admission and started folate, thiamine He was given IM Haldol and Ativan in the ER initially, and started on Risperdal on the evening of 03/19 Now significantly improved, less paranoia, more appropriate affect, much less psychomotor agitation There is a possibility he also had a drug-induced psychosis as there was reports from family members of horse tranquilizer (ketamine?) As well as methamphetamin e use -Continue Risperdal 0.5 mg p.o. at bedtime and 0.25 mg p.o. twice daily PRN during the day as per psychiatry -haldol IM ordered for severe agitation -check B1-pending, RPR pending -Patient refusing further laboratories as requested by psychiatry Psych consult appreciated-unfortunately, he cannot be transferred to a mental health unit until he is off precautions for his entero-/rhinovirus which will be when he is asymptomatic with his illness. (3) Pneumonia: Left sided multifocal PNA seen on CXR With fevers, hypotension, and some mild hypoxia all now resolved Significantly improved with starting antibiotics Continues to cough up sputum -Follow BCxs-no growth to date -sputum cx-pending -Received ceftriaxone x2 days-convert today to p.o. cefdinir 300 mg p.o. twice daily x5 more days-last dose on 03/24 -Continue azithro 250 mg p.o. daily-last dose 03/22 -checked BioFire--> + for Entero/Rhinovirus--> continue droplet precautions until course of illness is over-much improved already-likely 1-2 more days -COVID-19 negative-have since discontinued airborne precautions -follow CXR to resolution -supplemental O2 as needed -Patient refusing further labs therefore CBC not repeated (4) Sepsis: With leukocytosis, fever, tachycardia, and Pneumonia-resolved -follow BCxs, urine cx, sputum cx (5) Dehydration: with hyponatremia, ketones in urine Likely was not drinking much while paranoid -gave IVFs, now drinking and eating No further fluids or labs needed Much improved (6) Schizoaffective disorder, bipolar type: with a h/o 2 remote hospitalizations at inpatient Psych -consult Psych-appreciated on 302 warrant As above -Continue Risperdal (7) Acute metabolic encephalopathy: secondary to psychosis vs PNA and sepsis vs both-resolved -hydrated, treated with abx (8) Marijuana abuse: noted (9) Tobacco abuse: nicotine patch if needed (10) DVT prophylaxis: SCDs Dispo-continued stay for treatment of pneumonia, however is much improved and on oral antibiotics, not on IV fluids, and once symptoms are improved he can be taken off rhinovirus precautions and transfer to mental health unit Pump Rebuilder consulted Admission and Anticipated Discharge Date Admission Date: March 18, 2020 Subjective Patient reports feeling much better today. Still coughing up a lot of sputum, no rhinorrhea. Denies chest pain or abdominal pains, no nausea. He is eating well. Moving his bowels without loose stools. He reports getting a really good night's rest last night after taking Risperdal for the first time. He states that he spoke with his son on the phone today and they cleared the air regarding their differences. He is feeling much better from a mental health standpoint and does not think he needs to stay any longer for that. I discussed his case with the psychiatric nurse liaison. Patient is still refusing any further blood work today and psychiatry is requesting that he have blood work due to previous abnormalities. Review of Systems Review of Systems: All systems reviewed & are unremarkable except as noted in HPI & below Physical Exam Constitutional: average body habitus; no acute distress Eyes: + anicteric sclerae ENMT: external ear and nose normal, oropharynx normal Neck: trachea midline, no thyromegaly Respiratory: normal respiratory effort, lungs clear to auscultation no labored breathing Auscultation: + crackles (Left lower lung field); no rhonchi (Resolved) and no wheezes Cardiovascular: Rate/Rhythm: regular rate and regular rhythm Heart Sounds: no murmur Chest (Breasts): Chest: normal inspection of chest Gastrointestinal (Abdomen): normal bowel sounds, soft, nontender, no hepatosplenomegaly Musculoskeletal: Extremities: + extremities abnormal to inspection (sarcopenia), no cyanosis and no clubbing Shoulder: + joint line tenderness (+TTP over right anterior shoulder,long head biceps tendon, no effusion) Skin: + ecchymosis (Right upper inner arm) Neurologic: moves all extremities Psychiatric: A+Ox3, euthymic affect Orientation: oriented to person and cooperative Insight: + poor insight Lymphatic: no lymphedema Results & Data Results & Data ([facility]) Vital Signs (Past 12 Hours) Vital Signs Temp Pulse Resp BP Pulse Ox 03/20/20 14:19 36.7 C 87 18 128/87 95 Laboratory Results Lyme titer negative RPR pending Vitamin B1 pending Blood cultures no growth to date Sputum culture pending PG Care Time/CCT Total # of Minutes Spent Total Time Spent with Patient: Total time spent is greater than 50% in coordination of care (as documented) at patient's floor/unit and/or counseling patient: Coding Level of Care Code 90082 Subseq Hosp Care Lvl 2 Diagnoses Acute hyponatremia E87.1 Paranoia (psychosis) F22 Pneumonia J18.9 Sepsis A41.9 Dehydration E86.0 Schizoaffective disorder, bipolar type F25.0 Acute metabolic encephalopathy G93.41 Marijuana abuse F12.10 Tobacco abuse Z72.0 DVT prophylaxis Z29.9
[2020-03-20] MEDS: RISPERIDONE ODT 1MG PO SCH (21:11)
[2020-03-21 01:05] LABS: Marijuana Quant, GCMS Urine 573 ng/mL (<5)
[2020-03-21] MEDS: CEFDINIR 300 MG CAP PO SCH ×2 (09:12→20:25)
[2020-03-21] MEDS: ASPIRIN 81 MG ECTAB PO SCH (09:12)
[2020-03-21] MEDS: THIAMINE HCL 100 MG TAB PO SCH (10:34)
[2020-03-21] MEDS: ALUMINUM/MAGNESIUM SUSP 30 ML UDC PO PRN (12:20)
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
[2020-03-21] MEDS: AZITHROMYCIN 250 MG TAB PO SCH (17:08)
[2020-03-21] MEDS: RISPERIDONE ODT 1MG PO SCH (20:25)
[2020-03-22 01:14] LABS: Rapid Plasma Reagin Nonreactive (Nonreactive)
[2020-03-22] MEDS: CEFDINIR 300 MG CAP PO SCH (09:01)
[2020-03-22] MEDS: THIAMINE HCL 100 MG TAB PO SCH (09:01)
[2020-03-22] MEDS: ASPIRIN 81 MG ECTAB PO SCH (09:01)
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
[2020-03-22] MEDS: ALUMINUM/MAGNESIUM SUSP 30 ML UDC PO PRN (10:45)
--- NOTE | 2020-03-22 12:23 | Hospitalist Progress Note ---
Date of Service March 22, 2020 Assessment & Plan (1) Impaired decision making: Continues to not understand concerns or why he has ended up in hospital. Unable to understand concerns from his daughter. Continues to lack capacity to make his own medical decisions at this time. Plan to transfer to inpatient psychiatry facility as per discussion with Dr Baumann. (2) Acute hyponatremia: now resolved. Secondary to dehydration PNA, ?sepsis With paranoia, delusions, possible metabolic encephalopathy, and dehydration with Na+ 129 and ketones in urine on admission Secondary to dehydration, pneumonia, sepsis most likely Now hydrated with IVFs and Na+ up almost to normal at 135 Patient continues to refuse labs (3) Paranoia (psychosis): Patient is here on a 302 warrant and remains with a one-to-one sitter - inability to take care of himself and for prior homicidal ideations With a h/o bipolar disorder, schizoaffective type see H&P HPI for background information TSH here is normal Was making homicidal statements, pressured speech, with psychomotor agitation, paranoid that his family members were trying to have him committed and that someone was trying to kill him on the side of the road Question of prior drug use. UDS + for marijuana, but also reports of "horse tranquilizer" use Does drink some EtOH but unknown amounts Continue thiamine 100mg PO daily Now significantly improved, more appropriate affect, much less psychomotor agitation There is a possibility he also had a drug-induced psychosis as there was reports from family members of horse tranquilizer (ketamine?) As well as methamphetamine use -Continue Risperdal 1 mg p.o. at bedtime and 0.25 mg p.o. twice daily PRN during the day as per psychiatry -haldol IM ordered for severe agitation -check B1-pending, RPR negative (4) Pneumonia: Left base and lingula PNA on CXR With fevers, hypotension, and some mild hypoxia all now resolved Significantly improved with starting antibiotics - Follow BCxs-no growth to date - sputum cx-light normal yousif - Continue PO cefdinir 300 mg p.o. twice daily last dose on 03/24 - Continue azithro 250 mg p.o. daily-last dose 03/22 - checked BioFire -> + for Entero/Rhinovirus -> can d/c droplet precautions now no longer symptomatic - COVID-19 negative - Patient refusing further labs therefore CBC not repeated (5) Sepsis: Now resolved. Leukocytosis, fever, tachycardia with source PNA -follow BCxs, urine cx, sputum cx (6) Dehydration: Resolved (7) Schizoaffective disorder, bipolar type: with a h/o 2 remote hospitalizations at inpatient Psych on 302 warrant - Continue Risperdal (8) Acute metabolic encephalopathy: Now appears resolved. Secondary to hyponatremia vs. psychosis vs PNA and sepsis (9) Marijuana abuse: Patient admits to last smoking 2 weeks prior to admission. Does not feel he was ever paranoid or hallucinating therefore denies this had anything to do with his presentation to hospital. (10) Tobacco abuse: Nicotine patch if needed (11) DVT prophylaxis: SCDs Admission and Anticipated Discharge Date Admission Date: March 18, 2020 Isolation restrictions removed. Patient is medically stable for discharge to inpatient psychiatry at this time as discussed with Dr Baumann. Subjective Patient just wants to talk about his ingrown toe nails today and ankle swelling. He reports the ankle swelling was worse earlier this morning. He gets a water pill at [facility] although notes this is over the counter but he cannot tell me the name of it. Reports no longer coughing or sneezing. Afebrile. Review of Systems Review of Systems: All systems reviewed & are unremarkable except as noted in HPI & below Physical Exam Constitutional: average body habitus; + not well nourished and no acute distress Eyes: + anicteric sclerae ENMT: external ear and nose normal, oropharynx normal Neck: trachea midline, no thyromegaly Respiratory: normal respiratory effort; no respiratory distress Auscultation: lungs clear to auscultation bilaterally; no crackles, no rhonchi and no wheezes Cardiovascular: Extremities: + pedal edema (ankle 2+ b/l equal without erythema) Skin: no rashes, warm and dry + ecchymosis (Right upper inner arm) ingrown toe nails noted without surrounding infection Neurologic: moves all extremities and awake; no focal motor deficits and not confused Psychiatric: Orientation: alert, oriented x 3 and cooperative Eye Contact: + fair eye contact Thought Process: + looseness of associations Thought Content: reality based without delusions; not paranoid Suicidal Thoughts: denies suicidal thoughts Homicidal Thoughts: denies homicidal thoughts Insight: + impaired insight Judgement: + impaired judgement Results & Data Results & Data ([facility]) Vital Signs (Past 12 Hours) Vital Signs Temp Pulse Resp BP Pulse Ox 03/22/20 08:39 161/81 H 03/22/20 07:30 36.6 C 85 18 96 PG Care Time/CCT Total # of Minutes Spent Total Time Spent with Patient: Total time spent is greater than 50% in coordination of care (as documented) at patient's floor/unit and/or counseling patient: Coding Level of Care Code 14174 Subseq Hosp Care Lvl 2 Diagnoses Impaired decision making Z78.9 Acute hyponatremia E87.1 Paranoia (psychosis) F22 Pneumonia J18.9 Sepsis A41.9 Dehydration E86.0 Schizoaffective disorder, bipolar type F25.0 Acute metabolic encephalopathy G93.41 Marijuana abuse F12.10 Tobacco abuse Z72.0 DVT prophylaxis Z29.9
[2020-03-22] MEDS: AZITHROMYCIN 250 MG TAB PO SCH (16:21)
--- NOTE | 2020-03-23 14:25 | Discharge Summary ---
Date of Service March 22, 2020 Admission HPI Per Admitting Provider This pt is a 64 yo male with a h/o bipolar disorder with psychosis who was brought in by [employer] after he left home about one week ago and was driving hours away from his house. 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 Pt became increasingly paranoid that his son was going to call the police and have him committed to a hospital for psych issues. He then left and was maintaining contact with his daughter via phone until he ran out of cell phone minutes. He befriended another couple in the [place] area who lent him a cell phone to call his daughter. The daughter found out his approximate whereabouts. After pt reported to his daughter that he thought someone was trying to kill him and push his car over a [place]bert with him inside, she became worried about his mental health and called the police. Daughter also reports to me that pt has not seen a doctor in over 20 years and that was for an inpatient psychiatric hospitalization. She also thinks that he may be abusing "horse tranquilizers." Pt was found at his [facility], covered in feces, and his car was filled with feces and trash. He was agitated and combative in the ER and was given ativan and haldol, required multiple security guards to control him for safety. He was very lethargic when I saw him for admission, but did wake up enough a few times to tell me his name was "Ludwin" and answered "yes" to if he smoked cigarettes as well as "too much" when asked how many cigarettes per day he smoked. Otherwise, he would not provide any history. He was noted to be coughing, tachycardic, hypotensive, dehydrated, with ketones in urine, marijuana on tox screen, and with hyponatremia of Na+ 129. CT head was negative. A few hours after admission to the floor, he spiked a fever to 38.1C and was found to have a left sided multifocal PNA. He will be admitted for hyponatremia, dehydration, paranoia and confusion, and pneumonia with sepsis. Admission Exam Per Admitting Provider Constitutional: average body habitus, + disheveled and + lethargic; no acute distress Eyes: + anicteric sclerae; no eyelid abnormality exophthalmos OU ENMT: external ear and nose normal, oropharynx normal Neck: trachea midline, no thyromegaly Respiratory: normal respiratory effort and + cough; no labored breathing Auscultation: + rhonchi (bilateral); no wheezes Cardiovascular: Rate/Rhythm: regular rhythm and + tachycardic Heart Sounds: no murmur Chest (Breasts): Chest: normal inspection of chest Gastrointestinal (Abdomen): normal bowel sounds, soft, nontender, no hepatosplenomegaly Musculoskeletal: Extremities: + extremities abnormal to inspection (sarcopenia), no cyanosis and no clubbing Skin: no rashes, warm and dry Neurologic: moves all extremities Psychiatric: Orientation: oriented to person, cooperative and + guarded; + not oriented to place and + not oriented to time Eye Contact: + poor eye contact Motor Behavior: n tremor Insight: + severely impaired insight Lymphatic: no lymphedema Principal Diagnosis Schizoaffective disorder, Bipolar type Acute hyponatremia from dehydration Left lower lobe pneumonia Sepsis Psychosis Discharge Exam see physical exam from progress note from March 22 Discharge Data Allergies Allergy/AdvReac Type Severity Reaction Status Date / Time No Known Allergies Allergy Unverified 03/19/20 01:01 Consultations 03/18/20 08:05 ED Decision to Admit Stat 03/18/20 12:00 Consult Case Management - Discharge Planning Routine Consult Psychiatry Routine Ordered Studies 03/18/20 05:09 CT head/brain wo con Urgent Hospital Course (1) Acute metabolic encephalopathy: Naveen Caro is a 64 year old male admission to [facility] er from March 18 to 2019 due to altered mental state. On admission he was noted to be hyponatremic with Na 129 which resolved to 134 with normal saline. With regards to his tachycardia, tachypnea and fever he was also noted to have pneumonia on CXR and viral panel was positive for rhino/enterovirus. He was treated with Cefdinir and Azithromycin and his symptoms have now resolved. Recommend finishing antibiotic course as prescribed below. He was brought in on [address] after his family expressed concern about his mental state. This improved with treatment of his previously described medical conditions but his thoughts remain disorganized and unable to provide for his basic needs. He was diagnosed with schizoaffective disorder; bipolar type by psychiatry and started on risperidone with some improvement in his mentation. He is now medically stable to be transferred to an inpatient psychiatric facility when accepted. (2) Impaired decision making: (3) Acute hyponatremia: (4) Paranoia (psychosis): (5) Pneumonia: (6) Sepsis: (7) Dehydration: (8) Schizoaffective disorder, bipolar type: (9) Marijuana abuse: (10) Tobacco abuse: (11) DVT prophylaxis: Total Time Total Time Spent Total Time Spent (In Minutes): 35 Discharge Plan Discharge Items Patient Disposition: Transfer Behavioral Health Fac Reason For Visit: HYPONATREMIA, DEHYDRATION, PSYCHOSIS Discharge Diagnosis: Schizoaffective disorder, Bipolar type Acute hyponatremia from dehydration Left lower lobe pneumonia Sepsis Psychosis Condition on Discharge: Fair Activity: Resume your previous activity Non-emergency contact: Primary Care Provider Call non-emergency contact if: you have any medication questions and your symptoms worsen Follow-up/Referrals: PCP,NO [Primary Care Provider] - Diet: Regular Addtl Attending Provider Instructions: Naveen Caro is a 64 year old male admission to [facility] from March 18 to 2019 due to altered mental state. On admission he was noted to be hyponatremic with Na 129 which resolved to 134 with normal saline. With regards to his tachycardia, tachypnea and fever he was also noted to have pneumonia on CXR and viral panel was positive for rhino/enterovirus. He was treated with Cefdinir and Azithromycin and his symptoms have now resolved. Recommend finishing antibiotic course as prescribed below. He was brought in on [address] after his family expressed concern about his mental state. This improved with treatment of his previously described medical conditions but his thoughts remain disorganized and unable to provide for his basic needs. He was diagnosed with schizoaffective disorder; bipolar type by psychiatry and started on risperidone with some improvement in his mentation. He is now medically stable to be transferred to an inpatient psychiatric facility when accepted. Pending Studies at Discharge: No Stand-Alone Forms: [facility] Medications and DC Order Prescriptions: New haloperidol lactate 5 mg/mL Solution 2.5 mg IM Q6H PRN (Reason: delirium, psychosis) Qty: 1 RF: 0 cefdinir 300 mg Capsule 300 mg PO BID 2 Days Qty: 4 RF: 0 risperidone 0.5 mg Tablet,Disintegrating 0.25 mg PO BID PRN (Reason: Delirium, Psychosis) Qty: 30 RF: 0 risperidone 1 mg Tablet,Disintegrating 1 mg PO DAILY@2000 Qty: 30 RF: 0 thiamine HCl (vitamin B1) 100 mg tablet 100 mg PO DAILY Qty: 30 RF: 0 Discontinued aspirin 81 mg Tablet,Delayed Release (Dr/Ec) 81 mg PO DAILY RF: 0 Discharge Orders: Discharge Order (Routine); Ordered 03/22/20 Ordered By: Bubba Srinivasan Admission Data Admit Date/Time: 03/18/20 08:55 Attending Provider: Bubba Srinivasan Admit Provider: Lisa Barnes Primary Care Provider: PCP,NO Other Providers: Lisa Barnes ; Lissette Baumann Other Interventions: Discharge Summary Assessment (RN) Last Done: 03/22/20 20:41 DC Date/Time DO NOT enter until pt leaves facility: 03/22/20 22:15 Coding Level of Care Code D/C Day Management >30 mins Diagnoses Acute metabolic encephalopathy G93.41 Impaired decision making Z78.9 Acute hyponatremia E87.1 Paranoia (psychosis) F22 Pneumonia J18.9 Sepsis A41.9 Dehydration E86.0 Schizoaffective disorder, bipolar type F25.0 Marijuana abuse F12.10 Tobacco abuse Z72.0 DVT prophylaxis Z29.9
== END 2020-03-22 22:15 | DRG 871 ==
LOC: ED 04:44 → SUATTDRO 08:55 → 2W 08:55 → 3E 03-21 05:15